=== PATIENT | female | born 1990 | race Caucasian/White ===

== ENCOUNTER 2017-07-10 20:49 | Emergency (ER) | payer OTHER ==
[~2017-07-10] VITALS: Ht 147.3 cm; Wt 73.5 kg
[~2017-07-10 20:49] MED LIST: BACTRIM DS TAB1 EACH PO; ZPAK PO
[2017-07-10 21:27] LABS: ABSOLUTE NEUTROPHILS 6.4 thou/uL (1.4-8.2); BASOPHILS 0.3 % (0.0-2.0); EOSINOPHILS 4.1 % (0.0-3.0); HEMATOCRIT 38.7 % (37.0-47.0); HEMOGLOBIN 12.8 gm/dL (12.0-15.0); MCH 28.2 pg (26.0-34.0); MCV 85.7 fL (80.0-100.0); PLATELET COUNT 303 thou/uL (150-400); POLYS 54.6 % (36.0-66.0); RBC 4.52 mil/uL (4.20-5.00); RDW 13.4 % (10.5-14.5); WBC 11.7 thou/uL (4.0-11.0)
[2017-07-10 21:36] LABS: URINE BILIRUBIN NEGATIVE (Negative); URINE BLOOD 1+ (Negative); URINE CLARITY CLEAR; URINE COLOR YELLOW; URINE GLUCOSE-RANDOM* NEGATIVE (Negative); URINE KETONES NEGATIVE (Negative); URINE LEUKOCYTES NEGATIVE (Negative); URINE NITRITE NEGATIVE (Negative); URINE PROTEIN (DIPSTICK) NEGATIVE (Negative); URINE SPECIFIC GRAVITY >= 1.030 (1.005-1.035); URINE UROBILINOGEN 0.2 E.U./dl (0.2-1.0)
[2017-07-10 21:36] LABS: CALCIUM 9.1 mg/dL (8.5-10.1); CREATININE 0.7 mg/dL (0.6-1.0); POTASSIUM 3.4 mmol/L (3.5-5.1)
[2017-07-10 21:49] LABS: CASTS None Seen /LPF (None Seen); CRYSTALS None Seen /LPF (None Seen); SQUAMOUS 4-10 Moderate /LPF (0-3)
[2017-07-10 21:50] LABS: BACTERIA 1-9 Few /HPF (None Seen); URINE RBC 0-2 Rare /HPF (0-2); URINE WBC 0-5 Rare /HPF (0-5)
[2017-07-10] MEDS ORDERED: PRENATAL PO (22:05)
[2017-07-10 23:51] VITALS: BP 122/76
[2017-07-13 16:07] LABS: NEISSERIA GONORRHEA-PCR Negative (Negative)
== END 2017-07-10 23:50 | disposition home or self-care (01) ==
LOC: ER 20:49
PROVIDERS: Nurse Practitioner Family
DX: O26.891 Other specified pregnancy related conditions, first trimester (principal); Z3A.12 12 weeks gestation of pregnancy; R10.32 Left lower quadrant pain

== ENCOUNTER 2017-12-28 17:50 | Emergency (ER) | payer OTHER ==
[~2017-12-28] VITALS: Ht 142.2 cm; Wt 83.9 kg
[~2017-12-28 17:50] MED LIST changes: +PRENATAL PO
[2017-12-28 17:51] VITALS: BP 119/83
[2017-12-28] MEDS ORDERED: SSD CREAM 1% 5050 GM TOP (18:47)
[2017-12-28] MEDS ORDERED: KEFLEX500 M1 PO (18:47)
== END 2017-12-28 19:31 | disposition home or self-care (01) ==
LOC: ER 17:50
DX: T23.202A Burn of second degree of left hand, unspecified site, initial encounter (principal); T31.0 Burns involving less than 10% of body surface; F17.210 Nicotine dependence, cigarettes, uncomplicated; Z88.5 Allergy status to narcotic agent; Z91.040 Latex allergy status; X10.2XXA Contact with fats and cooking oils, initial encounter; Y93.89 Activity, other specified; Y92.89 Other specified places as the place of occurrence of the external cause; Y99.8 Other external cause status

== ENCOUNTER 2019-02-17 07:12 | Emergency (ER) | payer OTHER ==
[~2019-02-17] VITALS: Ht 144.8 cm; Wt 72.6 kg
[~2019-02-17 07:12] MED LIST changes: +KEFLEX500 M1 PO; +SSD CREAM 1% 5050 GM TOP
[2019-02-17 07:27] LABS: URINE BILIRUBIN NEGATIVE (Negative); URINE BLOOD NEGATIVE (Negative); URINE CLARITY CLEAR; URINE COLOR YELLOW; URINE GLUCOSE-RANDOM* NEGATIVE (Negative); URINE KETONES NEGATIVE (Negative); URINE LEUKOCYTES-REFLEX TRACE (Negative); URINE NITRITE-REFLEX NEGATIVE (Negative); URINE PROTEIN (DIPSTICK) NEGATIVE (Negative); URINE SPECIFIC GRAVITY 1.025 (1.005-1.035); URINE UROBILINOGEN 0.2 E.U./dl (0.2-1.0)
[2019-02-17 07:37] LABS: ABSOLUTE NEUTROPHILS 6.5 thou/uL (1.4-8.2); BASOPHILS 0.4 % (0.0-2.0); HEMATOCRIT 36.9 % (37.0-47.0); HEMOGLOBIN 12.1 gm/dL (12.0-15.0); LYMPHOCYTES 24.1 % (24.0-44.0); MCH 28.1 pg (26.0-34.0); MCHC 32.7 g/dL (28.0-37.0); MCV 85.8 fL (80.0-100.0); MONOCYTES 6.8 % (1.0-8.0); PLATELET COUNT 282 thou/uL (150-400); POLYS 64.7 % (36.0-66.0); RDW 14.5 % (10.5-14.5)
[2019-02-17 07:51] LABS: CALCIUM 9.6 mg/dL (8.5-10.1); CREATININE 0.6 mg/dL (0.6-1.0); POTASSIUM 3.7 mmol/L (3.5-5.1)
[2019-02-17 10:28] VITALS: BP 110/74
== END 2019-02-17 10:43 | disposition home or self-care (01) ==
LOC: ER 07:12
PROVIDERS: Emergency Medicine
DX: O26.892 Other specified pregnancy related conditions, second trimester (principal); R51 Headache; F17.210 Nicotine dependence, cigarettes, uncomplicated; Z3A.20 20 weeks gestation of pregnancy; Z91.040 Latex allergy status; Z88.6 Allergy status to analgesic agent

== ENCOUNTER 2019-02-27 03:24 | Emergency (ER) | payer OTHER ==
[~2019-02-27] VITALS: Ht 144.8 cm; Wt 81.7 kg
[2019-02-27] MEDS ORDERED: MUCINEX DM ER1 EAC1 PO (04:21)
[2019-02-27 04:28] VITALS: BP 98/64
== END 2019-02-27 04:28 | disposition home or self-care (01) ==
LOC: ER 03:24
DX: O99.512 Diseases of the respiratory system complicating pregnancy, second trimester (principal); J06.9 Acute upper respiratory infection, unspecified; O99.332 Smoking (tobacco) complicating pregnancy, second trimester; F17.210 Nicotine dependence, cigarettes, uncomplicated; Z88.5 Allergy status to narcotic agent; Z91.040 Latex allergy status; Z3A.21 21 weeks gestation of pregnancy

== ENCOUNTER 2019-05-15 21:08 | Emergency (ER) | payer OTHER ==
[~2019-05-15] VITALS: Ht 144.8 cm; Wt 81.7 kg
[~2019-05-15 21:08] MED LIST changes: +MUCINEX DM ER1 EAC1 PO
[2019-05-15 22:24] VITALS: BP 106/57
== END 2019-05-15 22:39 | disposition home or self-care (01) ==
LOC: ER 21:08
DX: O99.513 Diseases of the respiratory system complicating pregnancy, third trimester (principal); J06.9 Acute upper respiratory infection, unspecified; O99.333 Smoking (tobacco) complicating pregnancy, third trimester; Z3A.31 31 weeks gestation of pregnancy; Z88.5 Allergy status to narcotic agent; Z91.040 Latex allergy status